=== PATIENT | male | born 1995 | race African-American/Black ===

== ENCOUNTER 2017-03-25 12:52 | Emergency (ER) | payer SELFPAY ==
[2017-03-25] MEDS ORDERED: NORMAL SALINE 1000 ML 2,000 ML IV ONE (13:03)
--- NOTE | 2017-03-25 13:04 | ER Document Report ---
ED General Pain - General Stated Complaint: WEAKNESS Time Seen by Provider: 03/25/17 13:03 Mode of Arrival: Ambulatory Information source: Patient Notes: 21 yo vape nicotine, no alcohol, no recent marijuana, male normally healthy with feeling hot, sweating, jitterness, fatique, nausea and vomiting. No pain. Just prior to arrival: Girlfriend found him on the ground outside the [employer] he sweating, stopped talking, breathing funny, she checked his pulse and it was there, his fingers locked, he was saying he was good-OK, vomited en route. Today took 7 caffiene pills, 2 red bulls, 2 monster's energy drinks in order to stay up because he has 2 jobs. Normally only takes 4 red bulls daily. Had argument last night in which girlfriend basically gave up on him. He asked me to leave the room so he could have a few minutes with his girlfriend. No surgeries. No pain. Girlfriend with him states he was suicidal at age 14. A few months ago when she threatened to break up with him he got very emotional and depressed. No psych help. states "I feel lonely at times" TRAVEL OUTSIDE OF THE [place] IN LAST 30 DAYS: No - Related Data Allergies/Adverse Reactions: No Known Allergies Allergy (Verified 03/25/17 16:15) Past Medical History - General Information source: Patient, Friend - girlfriend - Social History Smoking Status: Current Every Day Smoker - vapor nicotine Frequency of alcohol use: None Drug Abuse: Marijuana - none recently Lives with: Spouse/Significant other Family History: Reviewed & Not Pertinent, Other - cannot obtain Psychiatric Medical History: Reports: Hx Bipolar Disorder, Hx Depression Surgical Hx: Negative Review of Systems - Review of Systems Constitutional: See HPI EENT: No symptoms reported Cardiovascular: No symptoms reported Respiratory: No symptoms reported Gastrointestinal: See HPI Genitourinary: No symptoms reported Male Genitourinary: No symptoms reported Musculoskeletal: No symptoms reported Skin: No symptoms reported Hematologic/Lymphatic: No symptoms reported Neurological/Psychological: See HPI Physical Exam - Vital signs Vitals: Resp Pulse Ox 29 H 100 03/25/17 12:59 03/25/17 12:59 Interpretation: Tachycardic - at times - General General appearance: Alert, Anxious, Other - pale In distress: None - HEENT Head: Normocephalic, Atraumatic Eyes: Normal Conjunctiva: Normal Pupils: PERRL Mucous membranes: Normal Pharynx: Normal Neck: Supple. No: Lymphadenopathy - Respiratory Respiratory status: No respiratory distress Chest status: Nontender Breath sounds: Normal Chest palpation: Normal - Cardiovascular Rhythm: Regular Heart sounds: Normal auscultation Murmur: No - Abdominal Inspection: Normal Distension: No distension Bowel sounds: Normal Tenderness: Nontender Organomegaly: No organomegaly. No: Hepatomegaly, Splenomegaly - Back Back: Normal, Nontender. No: CVA tenderness - Extremities General upper extremity: Normal inspection, Nontender, Normal color, Normal ROM , Normal temperature General lower extremity: Normal inspection, Nontender, Normal color, Normal ROM , Normal temperature, Normal weight bearing. No: Erlinda's sign - Neurological Neuro grossly intact: Yes Cognition: Normal Orientation: AAOx4 [place] Coma Scale Eye Opening: Spontaneous [place] Coma Scale Verbal: Oriented [place] Coma Scale Motor: Obeys Commands [place] Coma Scale Total: 15 Speech: Normal Motor strength normal: LUE, RUE, LLE, RLE Sensory: Normal - Psychological Associated symptoms: Depressed, Labile, Psychomotor agitation - intermittent, Restlessness, Tearful - intermittent - Skin Skin Temperature: Warm Skin Moisture: Dry Skin Color: Normal Skin irregularity: negative: Rash Course - Re-evaluation Re-evalutation: 03/25/17 13:50 dr forrest in to see pt, assist with orders. 03/25/17 16:25 pt ate peaches and apple sauce. PO potassium ordered. psych saw the pt and they believe he can go home. dr forrest OK with that. 03/25/17 18:19 vitals stable, ate food, no vomit, discussed community resources for counseling for his increased stress and [id number] depression. - Vital Signs Vital signs: Temp Pulse Resp BP Pulse Ox 98.1 F 72 20 106/66 100 03/25/17 13:21 03/25/17 17:30 03/25/17 19:09 03/25/17 19:09 03/25/17 19:09 - Laboratory Result Diagrams: 03/25/17 13:04 03/25/17 13:04 Laboratory results interpreted by me: 03/25/17 03/25/17 03/25/17 13:04 13:04 14:58 Potassium 2.9 L* Carbon Dioxide 19 L Anion Gap 22 H Creatinine 1.40 H Glucose 120 H Calcium 10.5 H Total Protein 9.1 H Albumin 5.2 H Urine Ketones TRACE H Salicylates < 1.0 L Acetaminophen < 10 L - EKG Interpretation by Me EKG shows normal: Sinus rhythm Rate: Tachycardia Rhythm: NSR Additional EKG results interpreted by me: 03/25/17 16:33 dr forrest evaluated the ekg, no acute change Discharge - Discharge Clinical Impression: Hypokalemia, marijuana use Caffeine overdose Qualifiers: Encounter type: initial encounter Injury intent: accidental or unintentional Qualified Code(s): T43.611A - Poisoning by caffeine, accidental (unintentional) , initial encounter Depression Qualifiers: Depression Type: unspecified Qualified Code(s): F32.9 - Major depressive disorder, single episode, unspecified Vomiting Qualifiers: Vomiting type: unspecified Vomiting Intractability: non-intractable Nausea presence: with nausea Qualified Code(s): R11.2 - Nausea with vomiting, unspecified Condition: Good Disposition: HOME, SELF-CARE Instructions: Vomiting ([facility]), Antinausea Medication ([facility]), Intravenous (IV) Fluids ([facility]), Hypokalemia ([facility]), Family Physicians / Practices Additional Instructions: no more caffiene drinks or pills continue to hydrate with fluids today eat regularly to er any concerns community resources given to you for counseling services in the area no marijuana Please complete the patient satisfaction survey if you get one, and return it.. If you do not receive a survey, then you can go to the [facility] website, [email or web address] and place your comments about your very good care. Thank you very much. It was a pleasure being your medical provider today. Forms: Return to Work
[2017-03-25] MEDS ORDERED: ONDANSETRON HCL INJ/PF 4 MG/2 ML SDV IV ONE (13:14)
[2017-03-25 13:24] LABS: ABSOLUTE EOSINOPHILS # (AUTO) 0.1 10^3/uL (0.0-0.6); ABSOLUTE LYMPHOCYTES (AUTO) 3.9 10^3/uL (0.5-4.7); ABSOLUTE MONOCYTES (AUTO) 0.6 10^3/uL (0.1-1.4); ABSOLUTE NEUT (AUTO) 4.4 10^3/uL (1.7-8.2); BASOPHILS % (AUTO) 0.5 % (0-2); HEMATOCRIT 44.9 % (37.9-51.0); HEMOGLOBIN 14.5 g/dL (13.5-17.0); HGB HCT DIFFERENCE -1.4; MEAN CORPUSCULAR HEMOGLOBIN 28.9 pg (27.0-33.4); MEAN CORPUSCULAR HGB CONC 32.2 g/dL (32.0-36.0); MEAN CORPUSCULAR VOLUME 90 fl (80-97); MONOCYTES % (AUTO) 6.5 % (3-13); RED CELL DISTRIBUTION WIDTH 12.7 % (11.5-14.0)
[2017-03-25 13:33] LABS: ALANINE AMINOTRANSFERASE 23 U/L (21-72); ALBUMIN 5.2 g/dL (3.5-5.0); ALKALINE PHOSPHATASE 49 U/L (38-126); ASPARTATE AMINO TRANSFERASE 32 U/L (17-59); BILIRUBIN,DIRECT 0.3 mg/dL (0.0-0.4); BILIRUBIN,TOTAL 1.3 mg/dL (0.2-1.3); BLOOD UREA NITROGEN 12 mg/dL (7-20); CALCIUM 10.5 mg/dL (8.4-10.2); CARBON DIOXIDE 19 mmol/L (22-30); GLUCOSE 120 mg/dL (75-110); TOTAL PROTEIN 9.1 g/dL (6.3-8.2)
[2017-03-25 13:43] LABS: ANION GAP 22 (5-19); CHLORIDE 103 mmol/L (98-107); POTASSIUM 2.9 mmol/L (3.6-5.0); SODIUM 144.4 mmol/L (137-145)
[2017-03-25] MEDS ORDERED: LORAZEPAM INJ 2 MG/1 ML VIAL IV ONE ×2 (13:44→13:51)
[2017-03-25 13:55] LABS: ALCOHOL < 10 mg/dL (NONE DETECTED)
[2017-03-25] MEDS: POTASSI CL 20 MEQ/50 ML RIDER 50 ML IV SCH ×2 (14:10→16:20)
--- NOTE | 2017-03-25 14:51 | EKG REPORT ---
SEVERITY:- ABNORMAL ECG - SINUS TACHYCARDIA NONSPECIFIC T ABNORMALITIES, INFERIOR LEADS BORDERLINE PROLONGED QT INTERVAL : Confirmed by: Daniel Ybarra MD 25-Mar-2017 14:50:32
[2017-03-25 15:23] LABS: APPEARANCE,URINE CLEAR; BILIRUBIN,URINE NEGATIVE (NEGATIVE); GLUCOSE, URINE NEGATIVE (NEGATIVE); KETONES,URINE TRACE mg/dL (NEGATIVE); LEUKOCYTE ESTERASE,URINE NEGATIVE (NEGATIVE); NITRITE,URINE NEGATIVE (NEGATIVE); PROTEIN,URINE NEGATIVE (NEGATIVE); URINE SPECIFIC GRAVITY 1.013; UROBILINOGEN,URINE NEGATIVE mg/dL (<2.0)
--- NOTE | 2017-03-25 15:23 | ER Document Report ---
ED Psych Disorder / Suicide - General Chief Complaint: General Weakness Stated Complaint: WEAKNESS Time Seen by Provider: 03/25/17 13:03 Mode of Arrival: Ambulatory TRAVEL OUTSIDE OF THE [place] IN LAST 30 DAYS: No - HPI Notes: Patient presents to [facility] ED for overdose on caffeine - significant other at bedside and reports that patient and her argued last night - patient repetitively stating "I'm okay; I need to go to work; I have a family to take care of; I have alot to do" Patient disclosed he drank both monsters and red bowls in addition to taking caffeine pills. He continued disclosed that he did have an argument with his significant other. Disclosed the argued about him not helping around the house because he falls asleep as soon as he gets home from work. Patient current has two jobs and works midnight shift. He states he took more than normal of the caffeine pills and drink more monsters and red bulls because he was "trying to stay awake to help around the house." Patient denies he was attempting to hurt himself. Patient states he did not know drinking that much caffeine would get him sick. patient disclosed that years ago he used marijuana frequently which helped him open up about his emotions and to stay calm. He continued to state that he no longer smokes marijuana and has noticed it is very difficult to open about his feelings to his girlfriend. Patient states he did go to the [facility] years ago for marijuana use. He continued disclosed that in 2007, while he was 14 years old, he went to [facility] for suicidal ideation. Patient states they "stuck" him on a "bunch of medication but it never worked." Patient disclosed he has no interest and no intention in going to outpatient therapeutic services or taking any medications for his depression; states he will be first in line to get a medical marijuana card when it becomes legal. Patient's girlfriend disclosed that they argued last night and did make a suicidal comment however every time they get into an argument and she tries to break up he makes comments like that. She continues disclosed that she does not think that this was a suicide attempt however thinks he was trying to get her attention and that he is depressed. Patient is alert and orientated to person place time and circumstance. Mood is dysphoric with tearful affect. Patient denies suicidal ideation. Patient denies homicidal ideation. Patient denies auditory and visual hallucinations; patient is not demonstrating any behavior congruent with responding to internal stimuli. No delusions are noted. Thought process is logical organized and linear. Conversational speech was within normal rate tone and prosody. Eye contact was well-maintained. Intellectual abilities appear to be within average range. Attention and concentration were good. Insight, judgment, impulse control are fair. 311 (F32.9) unspecified depressive disorder Impression\\plan: Patient is cleared psychiatrically clear for discharge. Patient does not meet IVC criteria per [place] GS 122C. Patient denies suicidal ideation. While patient did have a suicidal ideation when he was 14-year-old ( 7 years ago) and has been dealing with interpersonal relationship discord, patient received treatment at 14 year of age and is not currently actively suicidal. Patient took more caffeine than he normally would an attempt to stay awake. Patient currently holds 2 jobs which include working nights. Patient verbalizes he has no interest or intent to follow-up with outpatient services or taking medication. Patient is patient to consider therapeutic services. Patient states he will be first in line for a medical marijuana card when it becomes legal. Dr. Lawler was consulted on the care and management of this patient; attending physician is in agreement with recommendations and disposition. - Related Data Allergies/Adverse Reactions: No Known Allergies Allergy (Verified 08/30/16 10:05) Past Medical History - General Information source: Patient, Friend - girlfriend - Social History Smoking Status: Current Every Day Smoker - vapor nicotine Frequency of alcohol use: None Drug Abuse: Marijuana - none recently Lives with: Spouse/Significant other Family History: Reviewed & Not Pertinent, Other - cannot obtain Patient has suicidal ideation: No Patient has homicidal ideation: No Renal/ Medical History: Denies: Hx Peritoneal Dialysis Psychiatric Medical History: Reports: Hx Bipolar Disorder, Hx Depression Surgical Hx: Negative Physical Exam - Vital signs Vitals: Resp Pulse Ox 29 H 100 03/25/17 12:59 03/25/17 12:59 Course - Vital Signs Vital signs: Temp Pulse Resp BP Pulse Ox 98.1 F 114 H 14 135/88 H 98 03/25/17 13:21 03/25/17 13:21 03/25/17 13:21 03/25/17 13:21 03/25/17 13:21 - Laboratory Result Diagrams: 03/25/17 13:04 03/25/17 13:04 Laboratory results interpreted by me: 03/25/17 03/25/17 13:04 13:04 Potassium 2.9 L* Carbon Dioxide 19 L Anion Gap 22 H Creatinine 1.40 H Glucose 120 H Calcium 10.5 H Total Protein 9.1 H Albumin 5.2 H Salicylates < 1.0 L Acetaminophen < 10 L Discharge - Discharge Clinical Impression: Hypokalemia Caffeine overdose Qualifiers: Encounter type: initial encounter Injury intent: accidental or unintentional Qualified Code(s): T43.611A - Poisoning by caffeine, accidental (unintentional) , initial encounter Depression Qualifiers: Depression Type: unspecified Qualified Code(s): F32.9 - Major depressive disorder, single episode, unspecified Vomiting Qualifiers: Vomiting type: unspecified Vomiting Intractability: non-intractable Nausea presence: with nausea Qualified Code(s): R11.2 - Nausea with vomiting, unspecified
[2017-03-25 15:36] LABS: URINE BARBITURATES SCREEN NEGATIVE; URINE METHADONE SCREEN NEGATIVE; URINE OPIATES LOW NEGATIVE; URINE PHENCYCLIDINE SCREEN NEGATIVE
[2017-03-25] MEDS ORDERED: POTASSIUM CHLORIDE 20 MEQ/15 ML UDCUP PO ONE (16:31)
[2017-03-25 19:10] VITALS: BP 106/66
== END 2017-03-25 18:30 | disposition home or self-care (01) ==
LOC: ER 12:52
DX: T43.611A Poisoning by caffeine, accidental (unintentional), initial encounter (principal); E87.6 Hypokalemia; F12.90 Cannabis use, unspecified, uncomplicated; R61 Generalized hyperhidrosis; R53.83 Other fatigue; R11.2 Nausea with vomiting, unspecified; F17.290 Nicotine dependence, other tobacco product, uncomplicated; R00.0 Tachycardia, unspecified; F43.21 Adjustment disorder with depressed mood; R45.1 Restlessness and agitation
CPT/HCPCS: 93005; 99285; 96375; 96365; 96366; 36415; 82553; 80307 ×4; 83735; 85025; 80053; 81001; 93010; J2060; J2405; J3480; J7030

== ENCOUNTER 2017-06-16 13:22 | Emergency (ER) | payer OTHER ==
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
[2017-06-16 17:00] VITALS: BP 110/79
== END 2017-06-16 17:00 | disposition home or self-care (01) ==
LOC: ER 13:22
DX: S39.012A Strain of muscle, fascia and tendon of lower back, initial encounter (principal); M54.9 Dorsalgia, unspecified; M54.5 Low back pain; F17.210 Nicotine dependence, cigarettes, uncomplicated; V87.7XXA Person injured in collision between other specified motor vehicles (traffic), initial encounter
CPT/HCPCS: 72110; 99283

== ENCOUNTER 2017-08-16 22:35 | Emergency (ER) | payer SELFPAY ==
[2017-08-16 22:59] VITALS: BP 115/93
== END 2017-08-17 00:38 | disposition left against medical advice (07) ==
LOC: ER 22:35
DX: Z53.21 Procedure and treatment not carried out due to patient leaving prior to being seen by health care provider (principal)

== ENCOUNTER 2019-06-10 10:07 | Emergency (ER) | payer SELFPAY ==
--- NOTE | 2019-06-10 10:18 | ER Document Report ---
HPI - HPI Patient complains to provider of: sore throat Time Seen by Provider: 06/10/19 10:11 Onset: Other - 3 days Onset/Duration: Gradual Quality of pain: Achy Pain Level: 3 Context: Patient presents complaining of sore throat for the past 3 days. Patient reports subjective fever at home. Patient also reports penile discharge and is concerned about possible sexually transmitted infection. Associated Symptoms: Sore throat. denies: Fever Exacerbated by: Denies Relieved by: Denies Similar symptoms previously: No Recently seen / treated by doctor: No - ROS ROS below otherwise negative: Yes Systems Reviewed and Negative: Yes All other systems reviewed and negative - EENT EENT: REPORTS: Sore Throat - RESPIRATORY Respiratory: DENIES: Coughing - GASTROINTESTINAL Gastrointestinal: DENIES: Nausea - URINARY Urinary: REPORTS: Dysuria Notes: +discharge - DERM Skin Color: Normal Skin Problems: None Past Medical History - General Information source: Patient - Social History Smoking Status: Never Smoker Chew tobacco use (# tins/day): No Frequency of alcohol use: Occasional Drug Abuse: None Family History: Reviewed & Not Pertinent, Other - cannot obtain Patient has suicidal ideation: No Patient has homicidal ideation: No Pulmonary Medical History: Reports: Hx Asthma Renal/ Medical History: Denies: Hx Peritoneal Dialysis Psychiatric Medical History: Reports: Hx Bipolar Disorder, Hx Depression Surgical Hx: Negative Vertical Provider Document - CONSTITUTIONAL Agree With Documented VS: Yes Exam Limitations: No Limitations General Appearance: WD/WN, No Apparent Distress - INFECTION CONTROL TRAVEL OUTSIDE OF THE [place] IN LAST 30 DAYS: No - HEENT HEENT: Atraumatic, Normocephalic, Pharyngeal Exudate, Pharyngeal Tenderness, Pharyngeal Erythema - NECK Neck: Normal Inspection, Supple. negative: Lymphadenopathy-Left, Lymphadenopathy-Right - RESPIRATORY Respiratory: Breath Sounds Normal, No Respiratory Distress - CARDIOVASCULAR Cardiovascular: Regular Rate, Regular Rhythm - GI/ABDOMEN Gastrointestinal: Abdomen Soft - BACK Back: Normal Inspection. negative: CVA Tenderness-Right, CVA Tenderness-Left - MUSCULOSKELETAL/EXTREMETIES Musculoskeletal/Extremeties: MAEW - NEURO Level of Consciousness: Awake, Alert, Appropriate Motor/Sensory: No Motor Deficit - DERM Integumentary: Warm, Dry, No Rash Course - Laboratory Laboratory results interpreted by me: 06/10/19 11:34 Labs- Entire Visit 06/10/19 06/10/19 10:15 10:38 Urine Color LINSEY Urine Appearance CLOUDY Urine pH 5.0 Ur Specific [place] 1.039 Urine Protein >=500 H Urine Glucose (UA) NEGATIVE Urine Ketones TRACE H Urine Blood NEGATIVE Urine Nitrite NEGATIVE Urine Bilirubin SMALL H Urine Urobilinogen 4.0 H Ur Leukocyte Esterase MODERATE H Urine WBC (Auto) >182 Urine RBC (Auto) 23 Urine Bacteria (Auto) TRACE Urine WBC Clumps MOD Urine Mucus (Auto) MANY Urine Ascorbic Acid 40 H Group A Strep Rapid NEGATIVE Discharge - Discharge Clinical Impression: Sore throat UTI (urinary tract infection) Qualifiers: Urinary tract infection type: site unspecified Hematuria presence: without hematuria Qualified Code(s): N39.0 - Urinary tract infection, site not specified Condition: Stable Disposition: HOME, SELF-CARE Instructions: Sore Throat ([facility]), Trimethoprim-Sulfa ([facility]), Urinary Tract Infection ([facility]) Additional Instructions: Return immediately for any new or worsening symptoms Followup with your primary care provider, call tomorrow to make a followup appointment Cultures are pending, we will call if you need any different treatment Prescriptions: Sulfamethoxazole/Trimethoprim [Bactrim Ds Tablet] 1 each PO BID #[id number] tablet Referrals: [facility] [Provider Group] - Follow up as needed [facility] [Provider Group] - Follow up as needed
[2019-06-10] MEDS ORDERED: AZITHROMYCIN 250 MG TABLET PO ONE (10:56)
[2019-06-10] MEDS ORDERED: CEFTRIAXONE INJ 250 MG VIAL IM ONE (10:56)
[2019-06-10] MEDS ORDERED: LIDOCAINE 1% INJ (10 MG/ML) 10 ML MDV INJ ONE (10:57)
[2019-06-10 11:04] LABS: APPEARANCE,URINE CLOUDY; BILIRUBIN,URINE SMALL (NEGATIVE); COLOR,URINE AMBER; GLUCOSE, URINE NEGATIVE (NEGATIVE); KETONES,URINE TRACE mg/dL (NEGATIVE); LEUKOCYTE ESTERASE,URINE MODERATE (NEGATIVE); NITRITE,URINE NEGATIVE (NEGATIVE); PROTEIN,URINE >=500 mg/dL (NEGATIVE); URINE SPECIFIC GRAVITY 1.039
[2019-06-10 11:55] VITALS: BP 131/88
[2019-06-10 12:26] LABS: CHLAM PCR NOT DETECTED (NOT DETECT)
== END 2019-06-10 11:54 | disposition home or self-care (01) ==
LOC: ER 10:07
DX: J02.9 Acute pharyngitis, unspecified (principal); N39.0 Urinary tract infection, site not specified; R50.9 Fever, unspecified
CPT/HCPCS: 99283; 96374; 96375; 87070; 87086; 87880; 87077; 81001; 87491; 87591; J0696